=== PATIENT | male | born 1955 | race Caucasian/White ===

== ENCOUNTER → 2018-02-19 | Day surgery (SDC) | payer BC ==
[2018-02-18 13:00] LABS: BASOPHILS # (AUTO) 0.1 (0.0-0.1); BASOPHILS % 0.6 % (0.0-1.0); EOSINOPHILS # (AUTO) 0.1 (0.0-0.4); EOSINOPHILS % 1.4 % (0.0-6.0); HEMATOCRIT 45.8 % (38.2-49.6); LYMPHOCYTES # (AUTO) 2.7 (1.0-3.2); LYMPHOCYTES % 26.4 % (18.0-39.1); MEAN CORPUSCULAR HEMOGLOBIN 29.8 pg (28-32); MEAN CORPUSCULAR HGB CONC 32.8 g/dL (31-35); MEAN CORPUSCULAR VOLUME 90.9 fL (81-99); MONOCYTES # (AUTO) 0.9 (0.2-0.8); MONOCYTES % 8.6 % (4.4-11.3); NEUTROPHILS # (AUTO) 6.3 (2.1-6.9); NEUTROPHILS % 62.6 % (38.7-80.0); PLATELET COUNT 200 x10e3/uL (140-360); RED BLOOD COUNT 5.04 x10e6/uL (4.3-5.7); RED CELL DISTRIBUTION WIDTH 14.8 % (11.7-14.4)
--- NOTE | 2018-02-18 13:16 | Diagnostic Imaging Report ---
PROCEDURE: Frontal and lateral views of the chest. COMPARISON: Patients [facility], DX, CHEST SINGLE (PORTABLE), 06/06/2016, 13:39. INDICATIONS: PRE OPERATIVE CHEST X-RAY FOR HERNIA REPAIR SURGERY FINDINGS: Lines/tubes: None. Lungs: The lungs are well inflated and clear. There is no evidence of pneumonia or pulmonary edema. Pleura: There is no pleural effusion or pneumothorax. Heart and mediastinum: Cardiac silhouette is unremarkable. Pulmonary vasculature is normal. Tortuous aorta. Bones: No acute bony abnormality. IMPRESSION: 1. No acute cardiopulmonary abnormalities. Jaden Rubio M.D. Dictated by: Jaden Rubio M.D. on 02/18/2018 at 13:18 Electronically approved by: Jaden Rubio M.D. on 02/18/2018 at 13:18
[2018-02-18 13:19] LABS: ANION GAP 12.3 mmol/L (8-16); BLOOD UREA NITROGEN 10 mg/dL (7-26); BUN/CREATININE RATIO 11 (6-25); CALCIUM 9.7 mg/dL (8.4-10.2); CARBON DIOXIDE 30 mmol/L (22-29); CHLORIDE 102 mmol/L (98-107); CREATININE, SERUM 0.91 mg/dL (0.72-1.25); EST GLOMERULAR FILTRATION RATE > 60 ML/MIN (60-); GLUCOSE 75 mg/dL (74-118); POTASSIUM 4.3 mmol/L (3.5-5.1); SODIUM 140 mmol/L (136-145)
[~2018-02-19] MED LIST: BUPIVACAINE 0.25%/EPI 30ML SDV INJ ONE; DEXAMETHASONE SOD PHOS INJ 4 MG/ML VIAL ONE; FENTANYL CITRATE/PF 100MCG/2 ML INJ ONE; GLYCOPYRROLATE INJ 1MG/ 5 ML SYR ONE; KETOROLAC TROMETHAMINE 30 MG/ML VIAL ONE; LIDOCAINE HCL 2% LOCAL INJ 5 ML SDV VIAL INJ ONE; MIDAZOLAM HCL 2 MG/2 ML VIAL ONE; ONDANSETRON HCL INJ 2 MG/ML VIAL ONE; PROPOFOL IV EMULSION 10 MG/ML 20 ML VIAL ONE; SEVOFLURANE INHAL SOLN 250 ML PEN BTL ONE
--- OUTSIDE RECORDS SUMMARY | 2018-02-19 08:16 | XMS REPORT ---
Author Author [facility] Address Unknown Phone Unavailable Care Team Providers Care System Safety Engineer Name Role Phone DOMINIQUE LOUIS Unavailable Unavailable Problems This patient has no known problems. Allergies, Adverse Reactions, Alerts This patient has no known allergies or adverse reactions. Medications This patient has no known medications. Results Test Description Test Time Test Comments Text Results Atomic Results Result Comments CHEST 2 VIEWS [facility] [address] [address] Patient Name: CATIE BORGES MR #: [id number] : 1955 Age/Sex: 63/M Req # : [id number] Adm Physician: Ordered by: DOMINIQUE LOUIS MD Report #: [id number] Location: OR Room/Bed: Procedure: [id number] DX/CHEST 2 VIEWS Exam Date: 02/18/18 Exam Time : 1200 REPORT STATUS: Signed PROCEDURE: Frontal and lateral views of the chest. COMPARISON: [facility], DX, CHEST SINGLE (PORTABLE ), 06/06/2016, 13:39. INDICATIONS: PRE OPERATIVE CHEST X-RAY FOR HERNIA REPAIR SURGERY FINDINGS: Lines/tubes: None. Lungs: The lungs are well inflated and clear. There is no evidence of pneumonia or pulmonary edema. Pleura: There is no pleural effusion or pneumothorax. Heart and mediastinum: Cardiac silhouette is unremarkable. Pulmonary vasculature is normal. Tortuous aorta. Bones: No acute bony abnormality. IMPRESSION: 1. No acute cardiopulmonary abnormalities. Cassius Paula M.D. Dictated by: Cassius Paula M.D. on 02/18/2018 at 13:18 Electronically approved by: Cassius Paula M.D. on 2017 at 13:18 Dictated By: CASSIUS PAULA MD [id number] Transcribed By: BRUNO on 1318 COPY TO: DOMINIQUE LOUIS MD
--- NOTE | 2018-02-19 12:27 | Operative Report ---
DATE OF PROCEDURE: February 19, 2018 PREOPERATIVE DIAGNOSIS: Incarcerated umbilical hernia. POSTOPERATIVE DIAGNOSIS: Incarcerated umbilical hernia. OPERATION PERFORMED: Repair of incarcerated umbilical hernia. RN PLASMA CENTER: DOMINIQUE Bello. ANESTHESIA: General. COMPLICATIONS: None. ESTIMATED BLOOD LOSS: Minimal. DESCRIPTION OF PROCEDURE: With the patient lying in bed in supine position, under good general endotracheal anesthesia, the abdomen was prepped with Betadine solution and draped in the usual manner. A semilunar subumbilical incision was made. It was carried down through the subcutaneous tissue down to the fascia. Hernia sac was then encircled, and the hernia sac was then from the umbilicus. The excess of the hernia sac was then resected. Examination at this point revealed that there was a strong hernia ring with good tissues all the way around it, and the defect was not very large, so we decided to go ahead and do a primary repair, which was done using interrupted sutures of #0 Ethibond in a transverse fashion. This gave us a satisfactory closure without any tension. Hemostasis was ascertained. The fascia was then infiltrated with 1/4 percent Marcaine. The umbilicus was then tacked back down to the midline fascia with 3-0 Vicryl. The subcutaneous tissue was approximated with 3-0 Vicryl, and the skin was closed with interrupted vertical mattress sutures of 3-0 silk. A dressing was applied. The sponge, lap and needle count was correct. The patient tolerated the procedure well and returned to the recovery room in stable condition. Job#: [id number]
== END | disposition home or self-care (01) ==
LOC: OR 08:13
PROVIDERS: ATTEND Surgery
DX: K42.0 Umbilical hernia with obstruction, without gangrene (principal); I49.1 Atrial premature depolarization; F17.210 Nicotine dependence, cigarettes, uncomplicated; Z01.810 Encounter for preprocedural cardiovascular examination; Z01.812 Encounter for preprocedural laboratory examination; Z01.818 Encounter for other preprocedural examination
CPT/HCPCS: 36415; 49587; 71046; 80048; 85025; 93005; J1100; J1885; J2001; J2250; J2405; J3490

== ENCOUNTER → 2018-03-30 | Day surgery (SDC) | payer BC ==
[2018-03-29 10:28] LABS: BASOPHILS # (AUTO) 0.1 (0.0-0.1); BASOPHILS % 0.5 % (0.0-1.0); EOSINOPHILS # (AUTO) 0.1 (0.0-0.4); EOSINOPHILS % 1.2 % (0.0-6.0); HEMATOCRIT 45.1 % (38.2-49.6); HEMOGLOBIN 15.2 g/dL (14.0-18.0); LYMPHOCYTES # (AUTO) 3.3 (1.0-3.2); LYMPHOCYTES % 29.2 % (18.0-39.1); MEAN CORPUSCULAR HEMOGLOBIN 30.1 pg (28-32); MEAN CORPUSCULAR HGB CONC 33.7 g/dL (31-35); MEAN CORPUSCULAR VOLUME 89.3 fL (81-99); MONOCYTES # (AUTO) 1.1 (0.2-0.8); MONOCYTES % 9.4 % (4.4-11.3); NEUTROPHILS # (AUTO) 6.8 (2.1-6.9); NEUTROPHILS % 59.1 % (38.7-80.0); PLATELET COUNT 207 x10e3/uL (140-360); RED BLOOD COUNT 5.05 x10e6/uL (4.3-5.7); RED CELL DISTRIBUTION WIDTH 14.7 % (11.7-14.4)
[2018-03-29 12:22] LABS: ANION GAP 15.6 mmol/L (8-16); BLOOD UREA NITROGEN 17 mg/dL (7-26); BUN/CREATININE RATIO 17 (6-25); CALCIUM 9.8 mg/dL (8.4-10.2); CARBON DIOXIDE 26 mmol/L (22-29); CHLORIDE 103 mmol/L (98-107); CREATININE, SERUM 1.02 mg/dL (0.72-1.25); EST GLOMERULAR FILTRATION RATE > 60 ML/MIN (60-); GLUCOSE 91 mg/dL (74-118); POTASSIUM 4.6 mmol/L (3.5-5.1); SODIUM 140 mmol/L (136-145)
[~2018-03-30] MED LIST changes: -BUPIVACAINE 0.25%/EPI 30ML SDV INJ ONE; +BUPIVACAINE 0.5%/EPI 30 ML SDV INJ ONE; -GLYCOPYRROLATE INJ 1MG/ 5 ML SYR ONE; +LIDOCAINE HCL 1% 30ML-PF VIAL ONE
--- NOTE | 2018-03-30 13:57 | Operative Report ---
DATE OF PROCEDURE: March 30, 2018 PREOPERATIVE DIAGNOSIS: Right inguinal hernia. POSTOPERATIVE DIAGNOSIS: Right inguinal hernia. OPERATION PERFORMED: Repair of right inguinal hernia with extended Prolene hernia system. ANESTHESIA: General. COMPLICATIONS: None. ESTIMATED BLOOD LOSS: Minimal. DESCRIPTION OF PROCEDURE: With the patient lying in bed in the supine position under good general endotracheal anesthesia, the abdomen was prepped with Betadine solution and draped in the usual manner. A right inguinal incision was made. It was carried down through the subcutaneous tissue down to the external oblique aponeurosis. The external oblique was opened along the length of its fibers and the external inguinal ring was opened. The cord was then mobilized and retracted. Contained within the cord was an indirect hernia sac, and there was also a large complete blowout of the direct space representing what amounted to a pantaloon-type hernia. The lipoma of the cord was then from the cord structures and ligated with 2-0 Vicryl. The indirect hernia sac was similarly from the cord structures and ligated with a pursestring suture of 2-0 silk and resected. The direct hernia sac was then imbricated with a pursestring suture of 0 Ethibond. The preperitoneal space was then entered right through the internal ring and a pocket was created without any difficulty. An extended Prolene hernia system was then placed through the internal ring into the preperitoneal space, and the underlay patch was deployed without any problems. The overlay patch was then placed over the floor and split inferolaterally to allow for passage of the cord. The mesh was then sutured to the conjoined tendon and inguinal ligament using interrupted sutures of 2-0 Vicryl. This gave us a satisfactory repair without any tension. The whole area was then thoroughly irrigated. Perfect hemostasis was ascertained. All layers were infiltrated on the way out with a solution of 0.25% Marcaine. The external oblique aponeurosis was closed with a running suture of 2-0 Vicryl. Subcutaneous tissue was approximated with 3-0 plain and the skin was closed with clips. A dressing was applied. The sponge, lap and needle count was correct. The patient tolerated the procedure well and returned to the recovery room in stable condition. Job#: [id number]
== END | disposition home or self-care (01) ==
LOC: OR 09:28
PROVIDERS: ATTEND Surgery
DX: K40.90 Unilateral inguinal hernia, without obstruction or gangrene, not specified as recurrent (principal); D17.6 Benign lipomatous neoplasm of spermatic cord; F17.210 Nicotine dependence, cigarettes, uncomplicated; Z01.812 Encounter for preprocedural laboratory examination
CPT/HCPCS: 36415; 49505; 80048; 85025; C1781; J1100; J1885; J2001 ×2; J2250; J2405